=== PATIENT | female | born 1940 | race African-American/Black ===

== ENCOUNTER → 2020-02-28 | Outpatient (CLI) | payer OTHER | LOC: HYPER 08:40 → EDBD 08:42 → EDSEX 08:42 | PROVIDERS: ATTEND Emergency Medicine | DX: T24.332A Burn of third degree of left lower leg, initial encounter (principal); T25.322A Burn of third degree of left foot, initial encounter; T31.0 Burns involving less than 10% of body surface; M79.672 Pain in left foot; E78.5 Hyperlipidemia, unspecified; I48.91 Unspecified atrial fibrillation; K31.84 Gastroparesis; F41.9 Anxiety disorder, unspecified; Z85.528 Personal history of other malignant neoplasm of kidney; Z95.0 Presence of cardiac pacemaker; Z85.42 Personal history of malignant neoplasm of other parts of uterus; Z90.710 Acquired absence of both cervix and uterus; Z90.5 Acquired absence of kidney; X10.1XXA Contact with hot food, initial encounter; Y93.89 Activity, other specified; Y92.89 Other specified places as the place of occurrence of the external cause; Y99.8 Other external cause status ==